=== PATIENT | male | born 1950 | race Two or more races ===

== ENCOUNTER 2024-12-19 09:19 | Inpatient (IN) | payer OTHER ==
[~2024-12-19] VITALS: Ht 177.8 cm; Wt 80.7 kg
[2024-12-19] MEDS ORDERED: ASPIRIN 325 MG TABLET.EC PO STA (09:32)
--- NOTE | 2024-12-19 09:38 | NUR ---
SE RECIBE PACIENTE ALERTA Y ORIENTADO X3 EL MISMO REFIER
--- NOTE | 2024-12-19 09:38 | NUR ---
SE RECIBE PACIENTE EN AMBULANCIA , ALERTA Y ORIENTADO X3 EL MISMO REFIERE DOLOR DE PECHO . S/V ESTABLE DENTRO DE JOHNS CONDICION . PACIENTE EN VIRAL CON BARANDAS ELEVADAS EN ESPERA DE EVALUACION MEDICA.
--- NOTE | 2024-12-19 09:57 | NUR ---
SE UBICA A PTE EN CAMA EN POSICION SEMI SENTADA CON BARANDAS ELEVADAS POR JOHNS SEGURIDAD. PTE SE CONECTA A MONITOR CARDIACO Y OXIMETRIA. SE LE COLOCA A PTE CANULA NASAL A 3L/MIN LA CUAL TOLERA AL MOMENTO. PTE NO PRESENTA EDEMA EN EXTREMIDADES SUPERIORES. SE CANALIZA A PTE Y SE JOSE MUESTRAS DE LAB [facility] MEDICA BAJO MEDIDAS ASEPTICAS. SE ADMINISTRA [place] [facility] MEDICA Y SE ORIENTA A PTE QUIEN REFIERE ENTENDER Y ACEPTAR. SE NOTIFICA A EMPLEADO TANYA SOBRE PLACA PENDIENTE QUIEN REFIERE ENTENDER. SE MANTIENE BAJO OBSERVACION POR CAMBIO.
[2024-12-19 10:31] LABS: BASO % 1.0 % (0.1-1.2); EOS # 0.11 (0.04-0.54); EOS % 2.7 % (0.7-7.0); LYMPH # 0.86 (1.18-3.74); LYMPH % 21.0 % (19.3-53.1); MEAN PLATELET VOLUME 10.60 fl (9.4-12.4); MONO # 0.40 (0.24-0.82); MONO % 9.8 % (4.7-12.5); NEUT # 2.68 (1.56-6.13); NEUT % 65.3 % (34.0-71.1); RED CELL DISTRIBUTION WIDTH 20.3 % (11.6-14.4)
[2024-12-19 10:43] LABS: ALT/SGPT 102.0 U/L (12-78); AST/SGOT 33.0 U/L (15-37); BUN CREA RATIO 13.0 (7.0-25.0); CREATININE SERUM 1.08 mg/dL (0.70-1.30); GFR 67.02; GLUCOSE FASTING 107.0 mg/dL (65-100); LDH 354.0 U/L (87-241); OSMOLALITY SERUM 288.0 MOSM/KG (275-295); PHOSPHOKINASE CREATININE 93.0 U/L (39-308)
[2024-12-19 10:47] LABS: INR 1.46
--- NOTE | 2024-12-19 15:29 | NUR ---
SE RECIBE PACIENTE ALERTA Y ORIENTADO X3 EN AREA DE CRITICO EN CAMA #3 EN POSICION SEMI SENTADA CON BARANDAS ELEVADAS. AL MOMENTO SE OBSERVA PACIENTE CANALIZADO EN BRAZO JULISSA CON ANGIOS #20 Y #18. SE MANTIENE BAJO OBSERVACION POR CONTINUIDAD DE TRATAMIENTO.
[2024-12-19 18:05] LABS: URINE APPEARANCE Clear; URINE BILIRRUBIN Negative (NEGATIVE); URINE BLOOD Negative; URINE COLOR Yellow; URINE KETONE Negative (NEGATIVE); URINE LEUKOCYTE Small; URINE NITRATE Negative; URINE PROTEIN 30 (NEGATIVE); URINE UROBILINOGEN 0.2 E.U./dl
[2024-12-19 18:09] LABS: URINE BACTERIA 33.5 uL (0.0-1933); URINE CAST 2.49 uL (0.0-1.40); URINE EPITHELIAL CELLS 9.5 uL (0.0-38.8); URINE RBC 4.6 uL (0.0-20.8); URINE WBC 81.0 uL (0.0-23.2)
[2024-12-19 18:13] LABS: ABG PH 7.421 (7.35-7.45); ABG PO2 144.2 mmHg (80-100); BICARBONATE 26.7 mmol/l (23-25)
[2024-12-19 18:14] LABS: URINE GLUCOSE 100 MG/DL (NEGATIVE)
[2024-12-19 18:15] LABS: o2 32 %
--- NOTE | 2024-12-19 19:13 | NUR ---
AL MOMENTO DR. JACKSONA ORDENA PLACA DE PECHO PARA MEJOR EVALUACION DE IMAGEN YA QUE ANTERIOR NO SE DIVISA MUY DAVE.
[2024-12-19] MEDS ORDERED: ASPIRIN 81 MG TABLET.EC PO SCH (21:27)
[2024-12-19] MEDS ORDERED: ENOXAPARIN SODIUM 40 MG/0.4 ML SYRINGE SUBCUTANEO SCH (21:28)
[2024-12-19] MEDS ORDERED: IPRATROPIUM/ALBUTEROL SULFATE 3 ML AMPUL.NEB IH PRN (22:00)
[2024-12-19 22:41] LABS: CHOL HDL RATIO 2.7 (0-5.0); HDL 47.0 mg/dl (40-60); LDL 65.0 mg/dl (0-130); VLDL 15.0 (0-39)
[2024-12-19 23:34] VITALS: BP 103/78
[2024-12-20 01:11] VITALS: BP 101/62; O2SAT 98
[2024-12-20 02:06] VITALS: BP 125/83; O2SAT 99
[2024-12-20 05:25] VITALS: O2SAT 97
[2024-12-20 08:00] VITALS: BP 109/78
[2024-12-20 09:45] VITALS: O2SAT 84
[2024-12-20] MEDS ORDERED: RIVAROXABAN 20 MG TABLET PO SCH (10:32)
[2024-12-20] MEDS ORDERED: CARVEDILOL 3.125 MG TABLET PO SCH (10:34)
[2024-12-20] MEDS ORDERED: SPIRONOLACTONE 25 MG TABLET PO SCH (10:35)
[2024-12-20] MEDS ORDERED: ATORVASTATIN CALCIUM 40 MG TABLET PO SCH (10:36)
[2024-12-20] MEDS ORDERED: PANTOPRAZOLE SODIUM 40 MG TABLET.DR PO SCH (10:36)
[2024-12-20] MEDS ORDERED: ISOSORBIDE MONONITRATE 30 MG TABLET PO SCH (10:38)
[2024-12-20] MEDS ORDERED: AMIODARONE HCL 50 MG/ML AMPUL IV SCH (10:45)
[2024-12-20] MEDS ORDERED: AMIODARONE HCL 518 ML IV SCH (12:00)
[2024-12-20 18:52] VITALS: BP 104/77
[2024-12-21 02:12] VITALS: BP 95/73; O2SAT 98
[2024-12-21 08:27] VITALS: BP 93/66; O2SAT 100
[2024-12-21 12:38] VITALS: O2SAT 90
[2024-12-21] MEDS ORDERED: NOREPINEPHRINE BITARTRATE 1 MG/ML AMPUL IV SCH (13:45)
[2024-12-21] MEDS ORDERED: AMIODARONE HCL 200 MG TABLET PO NR (14:30)
[2024-12-21] MEDS ORDERED: NOREPINEPHRINE BITARTRATE 4 MG/D5W WITH TITRATING INSTRUCTIONS IV SCH (14:45)
[2024-12-21 16:13] VITALS: BP 91/62; O2SAT 99
[2024-12-21] MEDS ORDERED: AMIODARONE HCL 200 MG TABLET PO SCH (17:00)
[2024-12-21 17:01] VITALS: O2SAT 99
[2024-12-21 22:02] VITALS: O2SAT 99
[2024-12-22 03:08] VITALS: BP 108/77; O2SAT 99
[2024-12-22 06:12] LABS: BASO % 0.9 % (0.1-1.2); EOS # 0.19 (0.04-0.54); EOS % 4.4 % (0.7-7.0); LYMPH # 0.90 (1.18-3.74); LYMPH % 21.1 % (19.3-53.1); MEAN PLATELET VOLUME 11.00 fl (9.4-12.4); MONO # 0.44 (0.24-0.82); MONO % 10.3 % (4.7-12.5); NEUT # 2.69 (1.56-6.13); NEUT % 63.1 % (34.0-71.1); RED CELL DISTRIBUTION WIDTH 20.0 % (11.6-14.4)
[2024-12-22 06:47] LABS: BUN CREA RATIO 15.0 (7.0-25.0); CREATININE SERUM 1.1 mg/dL (0.70-1.30); GFR 65.62; GLUCOSE FASTING 89.0 mg/dL (65-100); OSMOLALITY SERUM 284.0 MOSM/KG (275-295)
[2024-12-22 09:28] VITALS: O2SAT 98
[2024-12-22 09:34] VITALS: BP 97/68
[2024-12-22 12:50] VITALS: O2SAT 96
[2024-12-22 19:12] VITALS: BP 91/65; O2SAT 100
[2024-12-22 23:38] VITALS: O2SAT 100
[2024-12-23] VITALS (7 sets, daily range): BP systolic 95–110; BP diastolic 70–81; O2SAT 90–100
[2024-12-24] VITALS (7 sets, daily range): BP systolic 86–98; BP diastolic 52–59; O2SAT 90–100
[2024-12-25] VITALS (9 sets, daily range): BP systolic 95–100; BP diastolic 70–72; O2SAT 97–100
[2024-12-25] MEDS ORDERED: MIDODRINE HCL 5 MG TABLET PO SCH (01:00)
[2024-12-25] MEDS ORDERED: SPIRONOLACTONE 25 MG TABLET PO SCH (17:00)
[2024-12-26] VITALS (8 sets, daily range): BP systolic 95–99; BP diastolic 66–68; O2SAT 95–100
[2024-12-26 09:20] LABS: BASO % 1.5 % (0.1-1.2); EOS # 0.34 (0.04-0.54); EOS % 7.3 % (0.7-7.0); LYMPH # 1.14 (1.18-3.74); LYMPH % 24.6 % (19.3-53.1); MEAN PLATELET VOLUME 10.40 fl (9.4-12.4); MONO # 0.36 (0.24-0.82); MONO % 7.8 % (4.7-12.5); NEUT # 2.72 (1.56-6.13); NEUT % 58.6 % (34.0-71.1); RED CELL DISTRIBUTION WIDTH 20.1 % (11.6-14.4)
[2024-12-26 09:38] LABS: BUN CREA RATIO 14.0 (7.0-25.0); CREATININE SERUM 1.26 mg/dL (0.70-1.30); GFR 56.1; GLUCOSE FASTING 158.0 mg/dL (65-100); OSMOLALITY SERUM 283.0 MOSM/KG (275-295)
[2024-12-27 00:14] VITALS: O2SAT 100
[2024-12-27 02:28] VITALS: BP 79/59; O2SAT 98
[2024-12-27 05:40] VITALS: O2SAT 100
[2024-12-27] MEDS ORDERED: MIDODRINE HCL5 MG PO (08:58)
[2024-12-27] MEDS ORDERED: XARELTO20 MG PO ×2 (08:59→09:14)
[2024-12-27] MEDS ORDERED: AMIODARONE HCL200 MG PO (09:03)
[2024-12-27] MEDS ORDERED: LIPITOR40 M1 PO (09:04)
[2024-12-27] MEDS ORDERED: CARVEDILOL3.125 MG PO (09:13)
[2024-12-27] MEDS ORDERED: LASIX40 MG PO (09:13)
[2024-12-27] MEDS ORDERED: SPIRONOLACTONE25 MG PO (09:13)
[2024-12-27] MEDS ORDERED: PANTOPRAZOLE SO40 MG PO (09:13)
[2024-12-27] MEDS ORDERED: FARXIGA5 MG PO (09:14)
[2024-12-27] MEDS ORDERED: TAMSULOSIN HCL0.4 MG PO (09:15)
[2024-12-27 09:22] VITALS: BP 94/68; O2SAT 93
[2024-12-27 09:34] VITALS: O2SAT 98
[2024-12-27 12:40] VITALS: O2SAT 96
== END 2024-12-27 13:13 | disposition home or self-care (01) | DRG 291 ==
LOC: ER 09:19 → MEDJ 21:45
PROVIDERS: Emergency Medicine; General Practice; Internal Medicine; ADMIT Internal Medicine; ATTEND Internal Medicine
PROC: B246ZZZ Ultrasonography of Right and Left Heart (ICD-10-PCS; principal; 2024-12-19)
PROC: 3E0F7GC Introduction of Other Therapeutic Substance into Respiratory Tract, Via Natural or Artificial Opening (ICD-10-PCS; 2024-12-20)
PROC: 4A12X4Z Monitoring of Cardiac Electrical Activity, External Approach (ICD-10-PCS; 2024-12-20)
DX: I11.0 Hypertensive heart disease with heart failure (principal); I50.23 Acute on chronic systolic (congestive) heart failure; R57.0 Cardiogenic shock; Z95.0 Presence of cardiac pacemaker; I48.0 Paroxysmal atrial fibrillation; F43.20 Adjustment disorder, unspecified; I25.10 Atherosclerotic heart disease of native coronary artery without angina pectoris

== ENCOUNTER 2025-01-30 18:19 | Inpatient (IN) | payer OTHER ==
[~2025-01-30] VITALS: Ht 172.7 cm; Wt 81.6 kg
[~2025-01-30 18:19] MED LIST: AMIODARONE HCL200 MG PO; CARVEDILOL3.125 MG PO; FARXIGA5 MG PO; LASIX40 MG PO; LIPITOR40 M1 PO; MIDODRINE HCL5 MG PO; PANTOPRAZOLE SO40 MG PO; SPIRONOLACTONE25 MG PO; TAMSULOSIN HCL0.4 MG PO; XARELTO20 MG PO
[2025-01-30] MEDS ORDERED: ACETAMINOPHEN 500 MG GEL..CAP PO ONE (19:00)
[2025-01-30] MEDS ORDERED: IPRATROPIUM BROMIDE 0.5 MG/2.5 ML AMPUL.NEB IH SCH (19:00)
--- NOTE | 2025-01-30 19:04 | NUR ---
SE RECIBE MASCULINO ALERTA Y ORIENTADO X3 EN AMBULANCIA CUAL REFIERE MALESTAR GENERAL, DOLOR DE PECHO EN OCASIONES, INFLAMACION EN LOS TESTICULOS Y QUE LLEVA SAMANTHA SEMANA SIN IR AL MICHAEL, SE OBSERVA LIGERA EDEMA EN AMBAS PIERNAS. SE REALIZA EKG Y SE PRESENTA A ALFONSO.ALEXANDER.
[2025-01-30 20:48] LABS: BASO % 1.2 % (0.1-1.2); EOS # 0.05 (0.04-0.54); EOS % 1.5 % (0.7-7.0); LYMPH # 0.73 (1.18-3.74); LYMPH % 22.1 % (19.3-53.1); MEAN PLATELET VOLUME 11.00 fl (9.4-12.4); MONO # 0.34 (0.24-0.82); MONO % 10.3 % (4.7-12.5); NEUT # 2.13 (1.56-6.13); NEUT % 64.6 % (34.0-71.1); RED CELL DISTRIBUTION WIDTH 19.2 % (11.6-14.4)
[2025-01-30] MEDS ORDERED: NITROGLYCERIN IN 5 % DEXTROSE 250 ML IV SCH (21:00)
--- NOTE | 2025-01-30 21:00 | NUR ---
SE ORIENTA A PTE SOBRE TX MEDICO ORDENADO POR . SE REALIZA JOSUE DE MUESTRAS DE LAB [facility] MEDICA Y BAJO MEDIDAS ASEPTICAS. VENOPUNCION PATENE TE EN H/L. SE ADMINISTRA ROBER DE MEDICAMENTOS [facility] MEDICA. SE ORIENTA IMPORTANCIA DE COLOCACION DE AMAYA Y EL MISMO LO REHUSA. PTE PENDIENTE A ESTUDIO.
[2025-01-30 21:15] LABS: ALT/SGPT 20.0 U/L (12-78); AST/SGOT 16.0 U/L (15-37); BILIRUBIN TOTAL 1.94 mg/dL (0.3-1.2); BUN CREA RATIO 13.0 (7.0-25.0); CREATININE SERUM 1.56 mg/dL (0.70-1.30); GFR 43.84; GLOBULINA 4.6 G/DL (2.4-3.5); GLUCOSE FASTING 133.0 mg/dL (65-100); INR 1.97; OSMOLALITY SERUM 284.0 MOSM/KG (275-295)
--- NOTE | 2025-01-30 23:10 | NUR ---
SE RECIBE PACIENTE MASCULINO ALERTA Y ORIENTADO X3, EN AREA DE CRITICO EN LA CAMA #3 CON BARANDAS ELEVADAS. CONECTADO A MONITOR CARDIACO Y OXIMETRIA DE PULSO. AREA DE VENOPUNCION EN EL BRAZO IZQUERDO CON ANGIO #20 Y SE LE COLOCA H/L, PATENTE LIZ DE EDEMA Y ENROJECIMIENTO. SE LE INSERTA AMAYA #16 CON MEDIDAS ASEPTICAS Y ESTERILES, SE OBSERVA ORINA COLOR AMARILLO OSCURO. PENDIENTE LA CONSULTA CON DR.MUNOZ PEREZ. SE OSBERVA POR CAMBIOS.
[2025-01-30] MEDS ORDERED: ACETAMINOPHEN 325 MG TABLET PO PRN (23:30)
[2025-01-31] VITALS (23 sets, daily range): BP systolic 81–106; BP diastolic 41–84; O2SAT 96–100
[2025-01-31 02:55] LABS: URINE APPEARANCE Clear; URINE BILIRRUBIN Negative (NEGATIVE); URINE BLOOD Small; URINE COLOR Yellow; URINE KETONE Negative (NEGATIVE); URINE LEUKOCYTE Negative; URINE NITRATE Negative; URINE PROTEIN Negative (NEGATIVE); URINE UROBILINOGEN 1.0 E.U./dl
[2025-01-31 03:03] LABS: URINE BACTERIA 41.9 uL (0.0-1933); URINE EPITHELIAL CELLS 2.6 uL (0.0-38.8); URINE RBC 35.9 uL (0.0-20.8); URINE WBC 5.2 uL (0.0-23.2)
[2025-01-31 03:16] LABS: URINE CAST 1.31 uL (0.0-1.40); URINE GLUCOSE 100 MG/DL (NEGATIVE)
[2025-01-31] MEDS ORDERED: ACETAMINOPHEN 500 MG GEL..CAP PO PRN (07:00)
[2025-01-31] MEDS ORDERED: RIVAROXABAN 20 MG TABLET PO SCH (09:00)
[2025-01-31] MEDS ORDERED: NOREPINEPHRINE BITARTRATE 8 MG in DEXTROSE 5 % IN WATER 250 ML IV SCH (10:00)
[2025-02-01] VITALS (23 sets, daily range): BP systolic 10–135; BP diastolic 52–77; O2SAT 96–100
[2025-02-01 06:12] LABS: BASO % 1.2 % (0.1-1.2); EOS # 0.08 (0.04-0.54); EOS % 1.9 % (0.7-7.0); LYMPH # 0.75 (1.18-3.74); LYMPH % 17.5 % (19.3-53.1); MEAN PLATELET VOLUME 10.60 fl (9.4-12.4); MONO # 0.42 (0.24-0.82); MONO % 9.8 % (4.7-12.5); NEUT # 2.97 (1.56-6.13); NEUT % 69.4 % (34.0-71.1); RED CELL DISTRIBUTION WIDTH 18.5 % (11.6-14.4)
[2025-02-01 06:42] LABS: ALT/SGPT 18.0 U/L (12-78); AST/SGOT 15.0 U/L (15-37); BILIRUBIN TOTAL 2.14 mg/dL (0.3-1.2); BUN CREA RATIO 18.0 (7.0-25.0); CREATININE SERUM 1.37 mg/dL (0.70-1.30); GFR 50.93; GLOBULINA 3.9 G/DL (2.4-3.5); GLUCOSE FASTING 98.0 mg/dL (65-100); OSMOLALITY SERUM 283.0 MOSM/KG (275-295)
[2025-02-01] MEDS ORDERED: NOREPINEPHRINE BITARTRATE 4 MG in DEXTROSE 5 % IN WATER 250 ML IV SCH (10:00)
[2025-02-01] MEDS ORDERED: SPIRONOLACTONE 25 MG TABLET PO NR (10:30)
[2025-02-01] MEDS ORDERED: MAGNESIUM HYDROXIDE 30 ML BLIST.PACK PO STA (10:43)
[2025-02-01] MEDS ORDERED: MINERAL OIL 30 ML BLIST.PACK PO STA (10:43)
[2025-02-01] MEDS ORDERED: LACTULOSE 20 G/30 ML BLIST.PACK PO STA (10:43)
[2025-02-01] MEDS ORDERED: NA PHOS,M-B/NA PHOS,DI-BA 1 BOTTLE ENEMA RECTAL NR (11:00)
[2025-02-01] MEDS ORDERED: IRON FUM,PS/FOLIC/BCOMP,C NO.9 1 CAP CAPSULE PO NR (12:30)
[2025-02-01] MEDS ORDERED: AMINO ACIDS/PROTEIN HYDROLYS 30 ML BLIST.PACK PO SCH (13:00)
[2025-02-01] MEDS ORDERED: MIDODRINE HCL 5 MG TABLET PO SCH (13:00)
[2025-02-01] MEDS ORDERED: NOREPINEPHRINE BITARTRATE 1 MG/ML AMPUL IV ONE (20:49)
[2025-02-02] VITALS (21 sets, daily range): BP systolic 74–99; BP diastolic 48–72; O2SAT 96–100
[2025-02-02] MEDS ORDERED: NITROGLYCERIN IN 5 % DEXTROSE 50 MG/250 ML BOTTLE IV ONE (00:12)
[2025-02-02] MEDS ORDERED: CARVEDILOL 3.125 MG TABLET PO SCH (09:00)
[2025-02-02] MEDS ORDERED: SPIRONOLACTONE 25 MG TABLET PO SCH (09:00)
[2025-02-02] MEDS ORDERED: IRON FUM,PS/FOLIC/BCOMP,C NO.9 1 CAP CAPSULE PO SCH (09:00)
[2025-02-02] MEDS ORDERED: NOREPINEPHRINE BITARTRATE 8 MG in DEXTROSE 5 % IN WATER 250 ML IV SCH (10:00)
[2025-02-02] MEDS ORDERED: NA PHOS,M-B/NA PHOS,DI-BA 1 BOTTLE ENEMA RECTAL NR (11:15)
[2025-02-03] VITALS (21 sets, daily range): BP systolic 73–110; BP diastolic 51–87; O2SAT 93–100
[2025-02-03 06:45] LABS: BASO % 0.9 % (0.1-1.2); EOS # 0.21 (0.04-0.54); EOS % 4.8 % (0.7-7.0); LYMPH # 0.93 (1.18-3.74); LYMPH % 21.4 % (19.3-53.1); MEAN PLATELET VOLUME 10.50 fl (9.4-12.4); MONO # 0.39 (0.24-0.82); MONO % 9.0 % (4.7-12.5); NEUT # 2.77 (1.56-6.13); NEUT % 63.7 % (34.0-71.1); RED CELL DISTRIBUTION WIDTH 18.7 % (11.6-14.4)
[2025-02-03 07:09] LABS: ALT/SGPT 19.0 U/L (12-78); AST/SGOT 16.0 U/L (15-37); BILIRUBIN TOTAL 1.67 mg/dL (0.3-1.2); BUN CREA RATIO 20.0 (7.0-25.0); CREATININE SERUM 1.36 mg/dL (0.70-1.30); GFR 51.36; GLOBULINA 4.3 G/DL (2.4-3.5); GLUCOSE FASTING 92.0 mg/dL (65-100); OSMOLALITY SERUM 286.0 MOSM/KG (275-295)
[2025-02-04] VITALS (16 sets, daily range): BP systolic 77–98; BP diastolic 55–77; O2SAT 92–100
[2025-02-05] VITALS (7 sets, daily range): BP systolic 71–101; BP diastolic 54–74; O2SAT 95–100
[2025-02-05 08:10] LABS: ALT/SGPT 22.0 U/L (12-78); AST/SGOT 22.0 U/L (15-37); BILIRUBIN TOTAL 1.61 mg/dL (0.3-1.2); BUN CREA RATIO 26.0 (7.0-25.0); CREATININE SERUM 1.35 mg/dL (0.70-1.30); GFR 51.8; GLOBULINA 4.5 G/DL (2.4-3.5); GLUCOSE FASTING 109.0 mg/dL (65-100); OSMOLALITY SERUM 290.0 MOSM/KG (275-295)
[2025-02-05 08:14] LABS: BASO % 1.7 % (0.1-1.2); EOS # 0.28 (0.04-0.54); EOS % 6.7 % (0.7-7.0); LYMPH # 1.09 (1.18-3.74); LYMPH % 26.1 % (19.3-53.1); MEAN PLATELET VOLUME 10.80 fl (9.4-12.4); MONO # 0.43 (0.24-0.82); MONO % 10.3 % (4.7-12.5); NEUT # 2.30 (1.56-6.13); NEUT % 55.0 % (34.0-71.1); RED CELL DISTRIBUTION WIDTH 19.4 % (11.6-14.4)
[2025-02-05] MEDS ORDERED: LACTULOSE 20 G/30 ML BLIST.PACK PO STA (10:42)
[2025-02-05] MEDS ORDERED: MINERAL OIL 30 ML BLIST.PACK PO STA (10:42)
[2025-02-05] MEDS ORDERED: POLYETHYLENE GLYCOL 3350 17 GM BLIST.PACK PO SCH (15:30)
[2025-02-06 04:00] VITALS: BP 73/62; O2SAT 100
[2025-02-06 07:42] VITALS: BP 86/71; O2SAT 100
[2025-02-06] MEDS ORDERED: SODIUM PHOSPHATE,MONO-DIBASIC 230 ML ENEMA RECTAL ONE (11:00)
[2025-02-06 12:00] VITALS: BP 82/57; O2SAT 98
[2025-02-06 14:00] VITALS: BP 98/72; O2SAT 98
[2025-02-06 15:17] VITALS: BP 84/66; O2SAT 95
[2025-02-06] MEDS ORDERED: PANTOPRAZOLE SODIUM 40 MG TABLET.DR PO NR (17:00)
[2025-02-06 18:50] VITALS: BP 90/71; O2SAT 100
[2025-02-07 02:45] VITALS: BP 95/68
[2025-02-07 06:10] LABS: BASO % 1.4 % (0.1-1.2); EOS # 0.28 (0.04-0.54); EOS % 5.5 % (0.7-7.0); LYMPH # 1.37 (1.18-3.74); LYMPH % 27.0 % (19.3-53.1); MEAN PLATELET VOLUME 10.20 fl (9.4-12.4); MONO # 0.56 (0.24-0.82); MONO % 11.0 % (4.7-12.5); NEUT # 2.78 (1.56-6.13); NEUT % 54.9 % (34.0-71.1); RED CELL DISTRIBUTION WIDTH 20.4 % (11.6-14.4)
[2025-02-07 06:47] LABS: ALT/SGPT 27.0 U/L (12-78); AST/SGOT 25.0 U/L (15-37); BILIRUBIN TOTAL 1.86 mg/dL (0.3-1.2); BUN CREA RATIO 34.0 (7.0-25.0); CREATININE SERUM 1.24 mg/dL (0.70-1.30); GFR 57.14; GLOBULINA 4.9 G/DL (2.4-3.5); GLUCOSE FASTING 104.0 mg/dL (65-100); OSMOLALITY SERUM 292.0 MOSM/KG (275-295)
[2025-02-07] MEDS ORDERED: BUMETANIDE 1 MG TABLET PO SCH (09:00)
[2025-02-07] MEDS ORDERED: PANTOPRAZOLE SODIUM 40 MG TABLET.DR PO SCH (09:00)
[2025-02-07 09:45] VITALS: BP 88/66; O2SAT 96
[2025-02-07 11:20] VITALS: BP 109/78; O2SAT 99
[2025-02-07 16:29] VITALS: BP 92/65; O2SAT 95
[2025-02-08 00:30] VITALS: BP 91/65; O2SAT 99
[2025-02-08 08:28] VITALS: BP 94/72
[2025-02-08] MEDS ORDERED: INTEGRA PLUS C1 EACH PO (12:31)
[2025-02-08] MEDS ORDERED: MIDODRINE HCL5 MG PO (12:31)
[2025-02-08] MEDS ORDERED: XARELTO20 MG PO (12:32)
[2025-02-08] MEDS ORDERED: BUMETANIDE1 MG PO (12:32)
[2025-02-08] MEDS ORDERED: PANTOPRAZOLE SO40 MG PO (12:32)
[2025-02-08] MEDS ORDERED: PROTEINEX-18 LI30 ML PO (12:32)
[2025-02-08 16:50] VITALS: BP 137/100; O2SAT 97
== END 2025-02-08 20:25 | disposition home or self-care (01) | DRG 291 ==
LOC: ER 18:19 → ICU-2 23:09 → ICU 01-31 21:51 → MEDI 02-06 18:04
PROVIDERS: Student in an Organized Health Care Education/Training Program; ADMIT Internal Medicine; ATTEND Internal Medicine
PROC: B246ZZZ Ultrasonography of Right and Left Heart (ICD-10-PCS; principal; 2025-01-30)
PROC: 3E0F7GC Introduction of Other Therapeutic Substance into Respiratory Tract, Via Natural or Artificial Opening (ICD-10-PCS; 2025-01-30)
PROC: 4A12X4Z Monitoring of Cardiac Electrical Activity, External Approach (ICD-10-PCS; 2025-01-31)
PROC: 3E0F7SF Introduction of Other Gas into Respiratory Tract, Via Natural or Artificial Opening (ICD-10-PCS; 2025-01-31)
PROC: 05HY33Z Insertion of Infusion Device into Upper Vein, Percutaneous Approach (ICD-10-PCS; 2025-02-01)
DX: I13.0 Hypertensive heart and chronic kidney disease with heart failure and stage 1 through stage 4 chronic kidney disease, or unspecified chronic kidney disease (principal); I50.43 Acute on chronic combined systolic (congestive) and diastolic (congestive) heart failure; N17.9 Acute kidney failure, unspecified; I48.20 Chronic atrial fibrillation, unspecified; J90 Pleural effusion, not elsewhere classified; I87.8 Other specified disorders of veins; E87.70 Fluid overload, unspecified; N44.8 Other noninflammatory disorders of the testis; K59.09 Other constipation; I95.89 Other hypotension; N18.9 Chronic kidney disease, unspecified; E78.5 Hyperlipidemia, unspecified; F17.200 Nicotine dependence, unspecified, uncomplicated; Z95.810 Presence of automatic (implantable) cardiac defibrillator; Z63.8 Other specified problems related to primary support group; Z79.01 Long term (current) use of anticoagulants

== ENCOUNTER 2025-03-15 09:20 | Inpatient (IN) | payer OTHER ==
[~2025-03-15] VITALS: Ht 180.3 cm; Wt 77.1 kg
[~2025-03-15 09:20] MED LIST changes: +BUMETANIDE1 MG PO; +INTEGRA PLUS C1 EACH PO; +PROTEINEX-18 LI30 ML PO
[2025-03-15] MEDS ORDERED: ONDANSETRON HCL 2 MG/ML VIAL IV ONE (10:00)
[2025-03-15] MEDS ORDERED: MORPHINE SULFATE 2 MG/ML SYRINGE IV ONE (10:00)
[2025-03-15] MEDS ORDERED: 0.9 % SODIUM CHLORIDE 1,000 ML IV SCH (10:00)
[2025-03-15] MEDS ORDERED: FAMOTIDINE/PF 20 MG/2 ML VIAL IV PUSH ONE (10:00)
[2025-03-15] MEDS ORDERED: FAMOTIDINE/PF 20 MG/2 ML VIAL ONE ×2 (10:22→18:44)
[2025-03-15] MEDS ORDERED: ONDANSETRON HCL 2 MG/ML VIAL ONE (10:22)
--- NOTE | 2025-03-15 11:10 | NUR ---
SE RECIBE PACIENTE EN AMBULANCIA ALERTA Y ORIENTADO X3 QUIEN REFIERE MAREOS Y DOLOR DE PECHO. PACIENTE TENER UN MARCAPASO EN AREA TORACICA IZQUIERDA. SE HACE EKG EVALUADO POR YAZMIN KEYES Y SE LE COLOCA UN MONITOR CARDIACO. SE MIDE S/V Y SE UBICA EN K8 PARA SER EVALUADO.
--- NOTE | 2025-03-15 12:19 | NUR ---
MEDICO REVALUA A PACIENTE, SE LE ADMINISTRA MEDICAMENTOS [facility] ORDEN Y SE LE JOSE MUESTRAS DE LABORATORIOS.PACIENTE RERFIERE ENTENDER.
[2025-03-15 14:20] LABS: BASO % 0.4 % (0.1-1.2); EOS # 0.00 (0.04-0.54); EOS % 0.0 % (0.7-7.0); LYMPH # 0.86 (1.18-3.74); LYMPH % 19.0 % (19.3-53.1); MEAN PLATELET VOLUME 11.40 fl (9.4-12.4); MONO # 0.35 (0.24-0.82); MONO % 7.7 % (4.7-12.5); NEUT # 3.28 (1.56-6.13); NEUT % 72.7 % (34.0-71.1); RED CELL DISTRIBUTION WIDTH 19.9 % (11.6-14.4)
[2025-03-15 14:50] LABS: ALT/SGPT 484 U/L (12-78); AST/SGOT 446 U/L (15-37); BILIRUBIN TOTAL 4.78 mg/dL (0.3-1.2); BUN CREA RATIO 20 (7.0-25.0); CREATININE SERUM 2.01 mg/dL (0.70-1.30); GFR 32.72; GLOBULINA 4.9 G/DL (2.4-3.5); GLUCOSE FASTING 91 mg/dL (65-100); OSMOLALITY SERUM 278 MOSM/KG (275-295)
[2025-03-15 14:55] LABS: INR 1.7
[2025-03-15 15:02] LABS: CKMB < 1.0 NG/ML (0.5-3.6)
[2025-03-15 19:07] VITALS: BP 130/90
[2025-03-16 03:26] VITALS: BP 104/71; O2SAT 98
[2025-03-16 06:20] LABS: BASO % 0.6 % (0.1-1.2); EOS # 0.00 (0.04-0.54); EOS % 0.0 % (0.7-7.0); LYMPH # 0.70 (1.18-3.74); LYMPH % 14.6 % (19.3-53.1); MEAN PLATELET VOLUME 11.30 fl (9.4-12.4); MONO # 0.56 (0.24-0.82); MONO % 11.7 % (4.7-12.5); NEUT # 3.49 (1.56-6.13); NEUT % 72.9 % (34.0-71.1); RED CELL DISTRIBUTION WIDTH 19.6 % (11.6-14.4)
[2025-03-16 06:28] LABS: INR 1.73
[2025-03-16 07:07] LABS: ALT/SGPT 676.0 U/L (12-78); AST/SGOT 720.0 U/L (15-37); BILIRUBIN TOTAL 4.56 mg/dL (0.3-1.2); BILIRUBIN,CONJUGATED 2.02 mg/dL (0.0-0.2); BUN CREA RATIO 21.0 (7.0-25.0); CREATININE SERUM 2.48 mg/dL (0.70-1.30); GFR 25.68; GLOBULINA 4.2 G/DL (2.4-3.5); GLUCOSE FASTING 118.0 mg/dL (65-100); OSMOLALITY SERUM 282.0 MOSM/KG (275-295)
[2025-03-16] MEDS ORDERED: ATORVASTATIN CALCIUM 40 MG TABLET PO SCH (09:00)
[2025-03-16] MEDS ORDERED: RIVAROXABAN 20 MG TABLET PO SCH (09:00)
[2025-03-16 09:42] VITALS: O2SAT 100
[2025-03-16 11:20] VITALS: BP 90/60; O2SAT 100
[2025-03-16 18:25] VITALS: BP 91/68
[2025-03-16] MEDS ORDERED: PANTOPRAZOLE SODIUM 40 MG/VIAL VIAL IV SCH (21:00)
[2025-03-17 03:21] VITALS: BP 90/65; O2SAT 97
[2025-03-17 08:01] LABS: URINE APPEARANCE Clear; URINE BILIRRUBIN Negative (NEGATIVE); URINE BLOOD Large; URINE COLOR Dark Yellow; URINE GLUCOSE Negative (NEGATIVE); URINE KETONE Negative (NEGATIVE); URINE LEUKOCYTE Small; URINE NITRATE Negative; URINE UROBILINOGEN 1.0 E.U./dl
[2025-03-17 08:02] LABS: URINE BACTERIA 261.9 uL (0.0-1933); URINE CAST 3.39 uL (0.0-1.40); URINE EPITHELIAL CELLS 13.3 uL (0.0-38.8); URINE RBC 123.5 uL (0.0-20.8); URINE WBC 106.0 uL (0.0-23.2)
[2025-03-17 08:27] LABS: URINE PROTEIN 100 (NEGATIVE)
[2025-03-17 09:46] VITALS: BP 99/70; O2SAT 97
[2025-03-17] MEDS ORDERED: PANTOPRAZOLE SODIUM 40 MG TABLET.DR PO SCH (19:42)
[2025-03-17] MEDS ORDERED: INDAPAMIDE 2.5 MG TABLET PO SCH (19:47)
[2025-03-17] MEDS ORDERED: CANDESARTAN CILEXETIL 16 MG TABLET PO SCH (19:48)
[2025-03-17] MEDS ORDERED: MILRINONE LACTATE/D5W 100 ML IV SCH (20:00)
[2025-03-17] MEDS ORDERED: CANDESARTAN CILEXETIL 8 MG TAB PO ONE (20:45)
[2025-03-17] MEDS ORDERED: CARVEDILOL 3.125 MG TABLET PO SCH (21:00)
[2025-03-17 22:15] VITALS: BP 118/82
[2025-03-18 03:21] VITALS: BP 90/60; O2SAT 97
[2025-03-18 07:13] LABS: ALT/SGPT 587.0 U/L (12-78); AST/SGOT 461.0 U/L (15-37); BILIRUBIN TOTAL 3.57 mg/dL (0.3-1.2); BUN CREA RATIO 27.0 (7.0-25.0); CREATININE SERUM 1.65 mg/dL (0.70-1.30); GFR 41.1; GLOBULINA 3.9 G/DL (2.4-3.5); GLUCOSE FASTING 75.0 mg/dL (65-100); OSMOLALITY SERUM 280.0 MOSM/KG (275-295)
[2025-03-18] MEDS ORDERED: CANDESARTAN CILEXETIL 8 MG TAB PO SCH (09:00)
[2025-03-18] MEDS ORDERED: APIXABAN 5 MG TABLET PO SCH (09:00)
[2025-03-18] MEDS ORDERED: INDAPAMIDE 2.5 MG TABLET PO SCH (09:00)
[2025-03-18 10:23] VITALS: BP 90/60; O2SAT 97
[2025-03-18] MEDS ORDERED: BUMETANIDE 2.5 MG/10 ML VIAL IV SCH (20:27)
[2025-03-18 21:43] VITALS: BP 90/60
[2025-03-19 01:12] VITALS: BP 81/47; O2SAT 99
[2025-03-19 04:47] VITALS: BP 76/60
[2025-03-19 08:14] LABS: ALT/SGPT 528.0 U/L (12-78); AST/SGOT 354.0 U/L (15-37); BILIRUBIN TOTAL 2.7 mg/dL (0.3-1.2); BUN CREA RATIO 20.0 (7.0-25.0); CREATININE SERUM 1.57 mg/dL (0.70-1.30); GFR 43.52; GLOBULINA 4.2 G/DL (2.4-3.5); GLUCOSE FASTING 73.0 mg/dL (65-100); OSMOLALITY SERUM 279.0 MOSM/KG (275-295)
[2025-03-19 10:29] VITALS: BP 90/60; O2SAT 96
[2025-03-19 18:02] VITALS: BP 90/60; O2SAT 96
[2025-03-20 02:36] VITALS: BP 88/58; O2SAT 93
[2025-03-20 10:11] VITALS: BP 90/60; O2SAT 98
[2025-03-20 18:38] VITALS: BP 97/62; O2SAT 95
[2025-03-20] MEDS ORDERED: NA PHOS,M-B/NA PHOS,DI-BA 1 BOTTLE ENEMA RECTAL ONE (22:00)
[2025-03-21 01:18] VITALS: BP 94/64; O2SAT 95
[2025-03-21 06:21] LABS: BASO % 1.4 % (0.1-1.2); EOS # 0.26 (0.04-0.54); EOS % 6.1 % (0.7-7.0); LYMPH # 1.01 (1.18-3.74); LYMPH % 23.6 % (19.3-53.1); MEAN PLATELET VOLUME 10.70 fl (9.4-12.4); MONO # 0.64 (0.24-0.82); NEUT # 2.30 (1.56-6.13); NEUT % 53.7 % (34.0-71.1); RED CELL DISTRIBUTION WIDTH 18.8 % (11.6-14.4)
[2025-03-21 06:48] LABS: MONO % 15.0 % (4.7-12.5)
[2025-03-21 06:53] LABS: ALT/SGPT 311.0 U/L (12-78); AST/SGOT 116.0 U/L (15-37); BILIRUBIN TOTAL 1.59 mg/dL (0.3-1.2); BUN CREA RATIO 18.0 (7.0-25.0); CREATININE SERUM 0.99 mg/dL (0.70-1.30); GFR 74.1; GLOBULINA 4.3 G/DL (2.4-3.5); GLUCOSE FASTING 92.0 mg/dL (65-100); OSMOLALITY SERUM 275.0 MOSM/KG (275-295)
[2025-03-21 09:17] VITALS: BP 100/72; O2SAT 95
[2025-03-21 21:44] VITALS: BP 149/76
[2025-03-22 01:03] VITALS: BP 90/55; O2SAT 96
[2025-03-22 10:46] VITALS: BP 92/60; O2SAT 97
[2025-03-22 19:18] VITALS: BP 116/68
[2025-03-22 19:19] VITALS: BP 86/64
[2025-03-23 02:02] VITALS: BP 100/65; O2SAT 95
[2025-03-23] MEDS ORDERED: POLYETHYLENE GLYCOL 3350 17 GM BLIST.PACK PO SCH (09:00)
[2025-03-23] MEDS ORDERED: MIDODRINE HCL 5 MG TABLET PO SCH (09:00)
[2025-03-23 09:30] VITALS: BP 100/70; O2SAT 97
[2025-03-23] MEDS ORDERED: NA PHOS,M-B/NA PHOS,DI-BA 1 BOTTLE ENEMA RECTAL SCH (13:00)
[2025-03-23 21:59] VITALS: BP 103/81
[2025-03-24 01:48] VITALS: BP 90/68; O2SAT 97
[2025-03-24 09:24] VITALS: BP 90/64; O2SAT 93
[2025-03-24] MEDS ORDERED: ELIQUIS5 MG PO (09:54)
[2025-03-24] MEDS ORDERED: MIDODRINE HCL5 MG PO (09:54)
[2025-03-24] MEDS ORDERED: PROTEINEX-18 LI30 ML PO (09:55)
[2025-03-24] MEDS ORDERED: BUMETANIDE1 MG PO (09:55)
[2025-03-24] MEDS ORDERED: FARXIGA5 MG PO (09:55)
[2025-03-24] MEDS ORDERED: PANTOPRAZOLE SO40 MG PO (09:55)
[2025-03-24] MEDS ORDERED: POLY119PG PO (09:55)
[2025-03-24] MEDS ORDERED: CARVEDILOL3.125 M1 PO (09:56)
== END 2025-03-24 13:22 | disposition home or self-care (01) | DRG 292 ==
LOC: ER 09:20 → MEDJ 18:23 → SEC-K 18:23 → MEDJ 20:16 → O/R 03-22 12:26 → MEDJ 03-22 12:27
PROVIDERS: General Practice; Internal Medicine; ADMIT Internal Medicine; ATTEND Internal Medicine
PROC: B246ZZZ Ultrasonography of Right and Left Heart (ICD-10-PCS; principal; 2025-03-15)
PROC: BT43ZZZ Ultrasonography of Bilateral Kidneys (ICD-10-PCS; 2025-03-15)
PROC: 4A12X4Z Monitoring of Cardiac Electrical Activity, External Approach (ICD-10-PCS; 2025-03-15)
PROC: 0T9B70Z Drainage of Bladder with Drainage Device, Via Natural or Artificial Opening (ICD-10-PCS; 2025-03-15)
PROC: 3E0F7SF Introduction of Other Gas into Respiratory Tract, Via Natural or Artificial Opening (ICD-10-PCS; 2025-03-16)
DX: I50.813 Acute on chronic right heart failure (principal); I13.0 Hypertensive heart and chronic kidney disease with heart failure and stage 1 through stage 4 chronic kidney disease, or unspecified chronic kidney disease; N17.9 Acute kidney failure, unspecified; J90 Pleural effusion, not elsewhere classified; I34.0 Nonrheumatic mitral (valve) insufficiency; R74.01 Elevation of levels of liver transaminase levels; K59.09 Other constipation; N18.9 Chronic kidney disease, unspecified; Z95.0 Presence of cardiac pacemaker